=== PATIENT | male | born 1955 | race Caucasian/White ===

== ENCOUNTER 2016-11-27 09:08 | Emergency (ER) | payer OTHER ==
[~2016-11-27] VITALS: Ht 172.7 cm; Wt 75.0 kg
[~2016-11-27 09:08] MED LIST: AMLO10 PO; CHLO10CA17 PO; CLON-481 PO; FOLI1 PO; MAGN400T PO; MVI PO; NORC7.5T PO; THIA100T PO; Z.0.WHEELELR
[2016-11-27 09:10] VITALS: BP 177/91; PULSE 110; RESP 15; TEMP 98.9; O2SAT 95
--- NOTE | 2016-11-27 10:03 | RADRPT ---
EXAM DATE/TIME: 11/27/2016 09:53 [place] COMPARISON: PELVIS AP ONLY, March 05, 2015, 17:57. INDICATIONS : Evaluate for foreign body. MEDICAL HISTORY : None. SURGICAL HISTORY : None. ENCOUNTER: Initial ACUITY: 1 day PAIN SCORE: 0/10 LOCATION: Bilateral abdomen FINDINGS: 2 supine frontal views of the abdomen demonstrate a lobulated density overlying the pelvis and mid sa pablo measuring up to 11.6 cm in length and maximal width of 3.9 cm. There is a nonobstructive bowel gas pattern. No free air is visualized. There is no organomegaly. Deg enerative changes are present throughout the thoracic and lumbar spine and patient has a right bipola r hip arthroplasty. There is heterotopic ossification adjacent to the lesser trochanter. CONCLUSION: There is a lobulated nonspecific radiopaque foreign body overlying the pelvis in the midline measurin g up to the maximal length of approximately 11.6 cm and maximal width of 3.9 cm. Tobin Osborne MD on November 27, 2016 at 9:55 Board Certified Radiologist. This report was verified electronically.
[2016-11-27] MEDS ORDERED: CLON0.3T PO (10:04)
[2016-11-27] MEDS ORDERED: GABA100C4 PO (10:04)
[2016-11-27] MEDS ORDERED: OMEP20TA PO (10:04)
[2016-11-27] MEDS ORDERED: SODIUM CHLORIDE 0.9% FLUSH 10 ML FLUSH IV FLUSH PRN (10:15)
--- NOTE | 2016-11-27 10:16 | PD ---
HPI Chief Complaint: Foreign Body Time Seen by Provider: 09:45 Travel History International Travel<30 days: No Contact w/Intl Traveler<30days: No Traveled to known affect area: No History of Present Illness HPI Patient is a 61-year-old male who presents to emergency room for evaluation as he has sexual toy (vibrator) stuck in his rectum. Patient reports that he placed this object in his rectum around midnight last night, reports that he has not been able to remove the foreign body. Patient reports only history of hypertension. He is currently not on any anticoagulation. PFSH Past Medical History Blood Disorders: No Cancer: No Cardiovascular Problems: Yes Diminished Hearing: No Endocrine: No GERD: Yes Genitourinary: No Hypertension: Yes (STATES CAN'T AFFORD MEDS) Immune Disorder: No Medical other: Yes (restless leg syndrome) Musculoskeletal: No Neurologic: Yes Psychiatric: No Reproductive: No Respiratory: No Immunizations Current: Yes Seizures: Yes (TODAY) Tetanus Vaccination: < 5 Years Influenza Vaccination: Yes Past Surgical History Other Surgery: Yes (left foot surgery) Social History Alcohol Use: Yes (6 pack beer daily) Tobacco Use: Yes (1 ppd) Substance Use: No Allergies-Medications (Allergen,Severity, Reaction): Coded Allergies: No Known Allergies (Verified , 11/27/16) Reported Meds & Prescriptions Reported Meds & Active Scripts Active Reported Gabapentin 100 Mg Cap 100 Mg PO DAILY Omeprazole 20 Mg Tab 20 Mg PO DAILY Clonidine (Clonidine HCl) 0.3 Mg Tab 0.3 Mg PO DAILY Review of Systems General / Constitutional: No: Fever Eyes: No: Visual changes HENT: No: Headaches Cardiovascular: No: Chest Pain or Discomfort Respiratory: No: Shortness of Breath Gastrointestinal: No: Abdominal Pain Genitourinary: No: Dysuria Musculoskeletal: No: Pain Skin: No Rash Neurologic: No: Weakness Psychiatric: No: Depression Endocrine: No: Polydipsia Hematologic/Lymphatic: No: Easy Bruising Physical Exam Narrative GENERAL: NAD SKIN: Focused skin assessment warm/dry. HEAD: Atraumatic. Normocephalic. EYES: Pupils equal and round. No scleral icterus. No injection or drainage. ENT: No nasal bleeding or discharge. Mucous membranes pink and moist. NECK: Trachea midline. No JVD. CARDIOVASCULAR: Regular rate and rhythm. No murmur appreciated. RESPIRATORY: No accessory muscle use. Clear to auscultation. Breath sounds equal bilaterally. GASTROINTESTINAL: Abdomen soft, non-tender, nondistended. Hepatic and splenic margins not palpable. Rectal exam: performed with RN at bedside, I am unable to reach FB to remove it MUSCULOSKELETAL: No obvious deformities. No clubbing. No cyanosis. No edema. NEUROLOGICAL: Awake and alert. No obvious cranial nerve deficits. Motor grossly within normal limits. Normal speech. PSYCHIATRIC: Appropriate mood and affect; insight and judgment normal. Data Data Last Documented VS Vital Signs Date Time Temp Pulse Resp B/P (MAP) Pulse Ox O2 Delivery O2 Flow Rate FiO2 11/27/16 12:50 77 15 147/77 (100) 97 11/27/16 09:10 98.9 Orders Orders Abdomen, Kub Only (11/27/16 ) Basic Metabolic Panel (Bmp) (11/27/16 10:14) Complete Blood Count With Diff (11/27/16 10:14) Iv Access Insert/Monitor (11/27/16 10:14) Sodium Chloride 0.9% Flush (Ns Flush) (11/27/16 10:15) Prothrombin Time / Inr (Pt) (11/27/16 10:14) Act Partial Throm Time (Ptt) (11/27/16 10:14) Diet Npo (11/27/16 Lunch) Consult Colorectal Surgery (11/27/16 ) (Hub Use Only)Inp Phy Cons/Ref (11/27/16 ) Labs Laboratory Tests Test 11/27/16 10:35 White Blood Count 7.3 TH/MM3 Red Blood Count 5.43 MIL/MM3 Hemoglobin 17.5 GM/DL Hematocrit 50.5 % Mean Corpuscular Volume 93.0 FL Mean Corpuscular Hemoglobin 32.3 PG Mean Corpuscular Hemoglobin Concent 34.7 % Red Cell Distribution Width 12.9 % Platelet Count 240 TH/MM3 Mean Platelet Volume 7.6 FL Neutrophils (%) (Auto) 74.6 % Lymphocytes (%) (Auto) 14.4 % Monocytes (%) (Auto) 10.3 % Eosinophils (%) (Auto) 0.3 % Basophils (%) (Auto) 0.4 % Neutrophils # (Auto) 5.5 TH/MM3 Lymphocytes # (Auto) 1.1 TH/MM3 Monocytes # (Auto) 0.8 TH/MM3 Eosinophils # (Auto) 0.0 TH/MM3 Basophils # (Auto) 0.0 TH/MM3 CBC Comment DIFF FINAL Differential Comment Prothrombin Time 10.1 SEC Prothromb Time International Ratio 0.9 RATIO Activated Partial Thromboplast Time 27.5 SEC Blood Urea Nitrogen 11 MG/DL Creatinine 0.94 MG/DL Random Glucose 110 MG/DL Calcium Level 9.7 MG/DL Sodium Level 137 MEQ/L Potassium Level 4.1 MEQ/L Chloride Level 104 MEQ/L Carbon Dioxide Level 25.4 MEQ/L Anion Gap 8 MEQ/L Estimat Glomerular Filtration Rate 82 ML/MIN MDM Medical Decision Making Medical Screen Exam Complete: Yes Emergency Medical Condition: Yes Medical Record Reviewed: Yes Interpretation(s) Vital Signs Date Time Temp Pulse Resp B/P (MAP) Pulse Ox O2 Delivery O2 Flow Rate FiO2 11/27/16 09:10 98.9 110 15 177/91 (119) 95 Differential Diagnosis FB in rectum Narrative Course 61-year-old male who resents to the emergency room with a foreign body lodged in his rectum since midnight last night. I attempted to manually remove FB - I was unsuccessful at this. Call made to colorectal surgery for assist with removal of this 11.6cm x 3.9cm FB. case discussed with Dr. George who will remove FP this afternoon. Patient made NPO Diagnosis Primary Impression: Foreign body anus/rectum Qualified Codes: T18.5XXA - Foreign body in anus and rectum, initial encounter Patient Instructions: General Instructions Additional Instructions: Please follow up with your primary care doctor Return to ER as needed Senia Hu DO Nov 27, 2016 10:16
[2016-11-27 11:29] LABS: AUTOMATED NEUTROPHIL # 5.5 TH/MM3 (1.8-7.7); BASOPHIL % 0.4 % (0.0-2.0); EOSINOPHIL % 0.3 % (0.0-4.0); HEMATOCRIT 50.5 % (39.0-51.0); HEMOGLOBIN 17.5 GM/DL (13.0-17.0); LYMPH % 14.4 % (9.0-44.0); LYMPHOCYTE # 1.1 TH/MM3 (1.0-4.8); MEAN CORPUSCULAR HEMOGLOBIN 32.3 PG (27.0-34.0); MEAN CORPUSCULAR HGB CONC 34.7 % (32.0-36.0); MEAN PLATELET VOLUME 7.6 FL (7.0-11.0); MONO % 10.3 % (0.0-8.0); MONOCYTE # 0.8 TH/MM3 (0-0.9); NEUT % 74.6 % (16.0-70.0); PLATELET COUNT 240 TH/MM3 (150-450); RED BLOOD COUNT 5.43 MIL/MM3 (4.50-5.90); RED CELL DISTRIBUTION WIDTH 12.9 % (11.6-17.2); WHITE BLOOD COUNT 7.3 TH/MM3 (4.0-11.0)
[2016-11-27 11:37] LABS: INTERNATIONAL NORMALIZED RATIO 0.9 RATIO; PROTHROMBIN TIME - PATIENT 10.1 SEC (9.8-11.6)
[2016-11-27 11:46] LABS: BICARBONATE 25.4 MEQ/L (21.0-32.0); CALCIUM 9.7 MG/DL (8.5-10.1); CREATININE 0.94 MG/DL (0.60-1.30)
[2016-11-27 12:50] VITALS: BP 147/77; PULSE 77; RESP 15; O2SAT 97
[2016-11-27] MEDS ORDERED: CHLORHEXIDINE GLUCONATE 2 % 1 PACK (2 CLOTHS) TOPICAL PRN (14:45)
[2016-11-27] MEDS ORDERED: LACTATED RINGER'S 1000 ML IV PRN (14:45)
[2016-11-27] MEDS ORDERED: POVIDONE IODINE 5% (ANTISEPSIS KIT) 4 APPLICATIONS EACH NARE PRN (14:45)
[2016-11-27] MEDS ORDERED: INSULIN HUMAN REGULAR 1,000 UNITS/10 ML VIAL SQ PRN (14:45)
[2016-11-27] MEDS ORDERED: METOPROLOL TARTRATE 25 MG TAB PO PRN (14:45)
[2016-11-27] MEDS ORDERED: SODIUM CHLORID 0.9% 500 ML IV PRN (14:45)
[2016-11-27 17:50] VITALS: BP 162/97; PULSE 82; RESP 16; TEMP 97.2; O2SAT 98
--- NOTE | 2016-11-28 20:36 | MB ---
cc: DOLORES SIEGEL M.D. DATE OF CONSULTATION: 11/27/2016. REASON FOR CONSULTATION: Foreign body of the rectum. HISTORY OF PRESENT ILLNESS: Mr. Mcarthur is a 61-year-old male who came to the emergency room after complaining of a foreign body that was unable to be retrieved from his rectum. He said the object was placed in the rectum about more than 12 hours ago. He had been trying to remove the foreign body on his own but has been unable to. He reports no rectal bleeding. No abdominal pain, nausea or vomiting or diarrhea. No fevers. The patient was seen in the emergency room and shown to have a foreign body by a flat plate of the abdomen which was not able to be palpated on rectal exam. The patient will therefore be brought to the GI lab for sigmoidoscopy and retrieval of the foreign body. PAST MEDICAL HISTORY: His past medical history is significant for a family history of colon cancer in his father. The patient has not had any colon evaluation or outpatient colonoscopies. Additional past medical and surgical history reviewed and updated in the history and physical. PHYSICAL EXAMINATION: GENERAL: A very pleasant male in no acute distress. HEAD, EYES, EARS, NOSE, THROAT: Remarkable for pink dry membranes, nonicteric sclera. NECK: Neck was supple without gross adenopathy. CHEST: Relatively clear and a little diminished in the bases. HEART: Heart had a regular rhythm. ABDOMEN: Abdomen was very soft and benign, muscular but not distended. Normal bowel sounds. No tympany, rebound or guarding or masses. RECTAL: Anal inspection revealed some hemorrhoid disease without fissures or fistula. Digital exam reveals decreased sphincter tone with no masses palpable even at the fingertip. No mucosal irregularities or blood noted. EXTREMITIES: No cyanosis or edema and 1+ trace pedal edema. IMPRESSION: Foreign body of the rectum. Reviewed the flat plate showing a foreign body in the upper rectum / lower sigmoid. The patient will be taken to the GI lab for sigmoidoscopy and retrieval of the foreign body at his earliest convenience. The risks, benefits, and alternatives were discussed and will set up either with or without sedation depending upon the patient's wishes. MD LAURA Cristina/TAWNYA /5:23 PM /8:25 PM
--- NOTE | 2016-11-28 22:03 | EKG ---
Date Performed: 11/27/2016 Time Performed: 15:10:50 PTAGE: 61 years EKG: Sinus rhythm MINIMAL VOLTAGE CRITERIA FOR LVH, CONSIDER NORMAL VARIANT BORDERLINE ECG PREVIOUS TRACING : 03/05/2015 19.03 COMPARED TO THE PREVIOUS EKG SINUS TACHYCARDIA IS NO LONGER PRESENT DOCTOR: Masoud Grewal Interpretating Date/Time 11/28/2016 21:38:17
--- NOTE | 2016-11-28 23:31 | MR ---
cc: DOLORES SIEGEL M.D. DATE OF PROCEDURE November 27, 2016 PREOPERATIVE DIAGNOSIS Foreign body of the rectum. POSTOPERATIVE DIAGNOSIS Foreign body of the rectum. PROCEDURE PERFORMED Flexible sigmoidoscopy and removal of foreign body. POSTOPERATIVE DIAGNOSIS 1. Foreign body of the rectum. 2. 1 cm sessile polyp of the rectosigmoid. SURGEON Dr. Siegel. PROCEDURE The patient was placed in the left lateral decubitus position. Rectal exam confirmed the emptiness of the rectal vault with a foreign body palpated at the very, very distal fingertip. Olympus colonoscope was introduced into the rectum and advanced easily through the rectum and into the sigmoid identifying the foreign body. Initially, a snare was placed around the distal end of the body but the snare was not able to easily pull the foreign body down into the rectum. Upon withdrawal of the sigmoidoscope, however, the object did fall down into the rectum with suctioning with the colonoscope. The object was then easily palpated and grasped. With the patient's assistance it was delivered through the anal canal with minimal trauma. The colonoscope was then reintroduced and advanced under direct vision to the rectosigmoid noting some minor trauma to the distal mucosa but no sign of any splitting or significant defects. There was a 1 cm sessile polyp noted in the upper rectum, lower sigmoid which was left alone. The lumen size of the colon appeared adequate. Internal hemorrhoids were irritated but no active bleeding was noted. The patient tolerated the procedure quite well and was brought to recovery room in stable condition. MD LAURA Cristina/NIMO /5:26 PM /11:22 PM
== END 2016-11-27 18:07 | disposition home or self-care (01) ==
LOC: NEPC 09:08
DX: T18.5XXA Foreign body in anus and rectum, initial encounter (principal); R94.31 Abnormal electrocardiogram [ECG] [EKG]; I10 Essential (primary) hypertension; F17.200 Nicotine dependence, unspecified, uncomplicated; Z86.79 Personal history of other diseases of the circulatory system; Z86.69 Personal history of other diseases of the nervous system and sense organs; X58.XXXA Exposure to other specified factors, initial encounter
CPT/HCPCS: 45332; 74000; 80048; 85025; 85610; 85730; 93005; 99284; J7120